=== PATIENT | female | born 1985 | race Caucasian/White ===

== ENCOUNTER 2019-03-24 20:52 | Inpatient (IN) | payer MEDICAID, OTHER ==
--- NOTE | 2019-03-24 21:27 | ED ---
General Adult HPI - General Chief complaint: Psychiatric Symptoms Stated complaint: Mental Health Time Seen by Provider: 03/24/19 21:08 Source: patient, police Mode of arrival: ambulatory Limitations: altered mental status - History of Present Illness Initial comments: Dictation was produced using [employer] dictation software. please excuse any gramma tical, word or spelling errors. Chief Complaint: 33-year-old female brought in by law enforcement for psychotic behavior. History of Present Illness: 33-year-old female brought in by law enforcement. According to law enforcement. Called because patient requested to be evaluated. According to enforcement patient had tangential speech. She is allegedly recently lost her house and is living and in another place with a gentleman named Christopher. Patient is unreliable historian at this time. Denies any suicidal or homicidal ideation. The ROS documented in this emergency department record has been reviewed and confirmed by me. Those systems with pertinent positive or negative responses have been documented in the HPI. All other systems are other negative and/or noncontributory. PHYSICAL EXAM: General Impression: Alert and oriented x3, tangential speech HEENT: Normocephalic atraumatic, extra-ocular movements intact, pupils equal and reactive to light bilaterally, mucous membranes moist. Cardiovascular: Heart regular rate and rhythm, S1&S2 audible, no murmurs, rubs or gallops Chest: Lungs clear to auscultation bilaterally, no rhonchi, no wheeze, no rales Abdomen: Bowel sounds present, abdomen soft, non-tender, non-distended, no organomegaly Musculoskeletal: Pulses present and equal in all extremities, no peripheral edema Motor: no focal deficits noted Neurological: CN II-XII grossly intact, no focal motor or sensory deficits noted Skin: Intact with no visualized rashes Psych: Tangential speech ED course: 33-year-old female presents with clinical presentation consistent with acute psychosis. Patient is brought in by law enforcement. She is petition by law enforcement. Vital signs upon arrival are within acceptable limits. Physical examination is unremarkable. She medically cleared for EPS evaluation. She'll be admitted to inpatient psychiatry. - Related Data Allergies Allergy/AdvReac Type Severity Reaction Status Date / Time Penicillins Allergy Rash/Hives Verified 03/24/19 21:07 Review of Systems ROS Statement: Those systems with pertinent positive or pertinent negative responses have been documented in the HPI. ROS Other: All systems not noted in ROS Statement are negative. Past Medical History Additional Past Medical History / Comment(s): back pain, asthma, carpool, anxiety, PTSD History of Any Multi-Drug Resistant Organisms: None Reported Past Surgical History: Appendectomy Smoking Status: Current every day smoker Past Alcohol Use History: None Reported Past Drug Use History: Marijuana General Exam Limitations: altered mental status Course Vital Signs 03/24/19 20:57 Temperature 98.1 F Pulse Rate 75 Respiratory 18 Rate Blood Pressure 133/82 O2 Sat by Pulse 98 Oximetry Medical Decision Making - Lab Data Lab Results 03/24/19 Range/Units 20:50 Urine Opiates Screen Not Detected (NotDetected) Ur Oxycodone Screen Not Detected (NotDetected) Urine Methadone Screen Not Detected (NotDetected) Ur Propoxyphene Screen Not Detected (NotDetected) Ur Barbiturates Screen Not Detected (NotDetected) U Tricyclic Antidepress Not Detected (NotDetected) Ur Phencyclidine Scrn Not Detected (NotDetected) Ur Amphetamines Screen Not Detected (NotDetected) U Methamphetamines Scrn Not Detected (NotDetected) U Benzodiazepines Scrn Not Detected (NotDetected) Urine Cocaine Screen Not Detected (NotDetected) U Marijuana (THC) Screen Detected H (NotDetected) Disposition Clinical Impression: Psychosis Disposition: ADMITTED IP TO THIS [facility] Condition: Fair Referrals: Nonstaff,Physician [REFERRING] - 1-2 days Decision Time: 23:16
[2019-03-24 21:32] LABS: Amphetamine Screen,Urine Not Detected (NotDetected); Barbiturate Screen,Urine Not Detected (NotDetected); Benzodiazepines Screen,Urine Not Detected (NotDetected); Cocaine Screen,Urine Not Detected (NotDetected); Methadone Screen, Urine Not Detected (NotDetected); Opiate Screen,Urine Not Detected (NotDetected); Oxycodone Screen, Urine Not Detected (NotDetected); Phencyclidine Screen,Urine Not Detected (NotDetected); Tricyclic Antidepressant,Urine Not Detected (NotDetected); Urn Cannabinoid Scrn Detected (NotDetected)
[2019-03-25] MEDS ORDERED: MAGNESIUM HYDROXIDE 2,400 MG/10 ML CUP PO PRN (00:53)
[2019-03-25] MEDS ORDERED: MAG HYDROX/AL HYDROX/SIMETH 30 ML CUP PO PRN (00:53)
[2019-03-25] MEDS ORDERED: ACETAMINOPHEN TAB 325 MG TAB PO PRN (00:53)
[2019-03-25] MEDS ORDERED: LORazepam 2 MG/ML INJ IM PRN (01:16)
[2019-03-25 01:17] LABS: Appearance,Urine Cloudy (Clear); Bacteria,Urine Rare /hpf; Bilirubin,Urine Negative (Negative); Blood,Urine Negative (Negative); Color,Urine Yellow; Glucose,Urine (UA) Negative (Negative); Ketones,Urine Negative (Negative); Leukocyte Esterase,Urine Small (Negative); Mucus,Urine Few /hpf; Nitrite,Urine Negative (Negative); PH, Urine 5.5 (5.0-8.0); Protein,Urine 1+ (Negative); RBC,Urine 4 /hpf (0-5); Specific Gravity,Urine 1.035 (1.001-1.035); Squamous Epithelial Cell,Urine 27 /hpf (0-4); Urobilinogen,Urine <2.0 mg/dL (<2.0); WBC,Urine 20 /hpf (0-5)
[2019-03-25] MEDS: LORazepam 1 MG TAB PO PRN ×2 (02:13→10:05)
[2019-03-25] MEDS: NICOTINE 14MG/24HR PATCH TRANSDERM SCH (09:49)
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
[2019-03-26] MEDS: LORazepam 1 MG TAB PO PRN ×2 (00:21→20:55)
[2019-03-26] MEDS: NICOTINE 14MG/24HR PATCH TRANSDERM SCH (10:30)
--- NOTE | 2019-03-26 13:04 | P.PN ---
Subjective Progress Note Date: 03/26/19 Chief complaint: "I am feeling completely alright" Subjective: The patient has been seen today as follow-up, chart reviewed, case discussed with the treatment team. Patient remained very paranoid and guarded during the interview. She insists that she should be the discharge. The patient was looking around suspiciously and asked if there was a camera here. The patient did not answer any questions and was more argumentative and debating the treatment during the interview. The patient denies any auditory or visual hallucinations but appears to be responding to internal cues. She did not answer questions regarding suicidal thoughts. The patient appears to be suspicious of myself and the staff on the unit. The patient is refusing any medications at this time. Objective - Vital Signs Vital signs: Vital Signs Temp 97.9 F 03/26/19 06:54 Pulse 74 03/26/19 06:54 Resp 16 03/26/19 06:54 BP 106/62 03/26/19 06:54 Pulse Ox 99 03/26/19 06:54 Intake & Output 03/25/19 03/26/19 03/26/19 18:59 06:59 18:59 Weight 69.2 kg - Exam Objective: Vitals has been reviewed. Mental status examination; Appearance: The patient appears stated age, dressed in hospital gown, no specific features. Gait/posture: Normal gait, Normal arm swinging: No abnormal movements. Attitude and behavior: Poorly engaged, uncooperative, eye contact. Motor activity: Normal psychomotor activity Speech: Rapid and low tone and volume. Mood: Anxious, depressed. Affect: Constricted Thought form: Rambling and hyperverbal. Thought content: Non-delusional, denies suicidal thoughts, but reports feeling hopeless, denies homicidal thoughts, denies intentions or plans. Perception: Denies any auditory or visual hallucinations but appears preoccupied and responding to internal cues. Orientation: Unable to assess. Insight: Absent Judgment: Poor Assessment and Plan Assessment: Unspecified psychotic disorder versus bipolar disorder manic with psychosis Plan: PLAN: Continue inpatient level of care due to need for further stabilization on medications Precautions: Continue 15 minutes check for safety. Consults internal medicine team for management of medical problems. Provide the patient individual, group therapy, substance use disorder counseling to give better insight and learn coping skills. Medications: Recommend Zyprexa 5 mg by mouth twice a day. The patient is refusing any treatment. The patient is on petition and clinical certificate. A meeting the court date. Discharge patient to OUTPATIENT services upon a stabilization Expected LOS: 3-5 days
[2019-03-26] MEDS: OLANZapine ODT 5 MG TAB PO SCH ×2 (20:51→22:39)
[2019-03-27] MEDS: NICOTINE 14MG/24HR PATCH TRANSDERM SCH (08:58)
[2019-03-27] MEDS: OLANZapine ODT 5 MG TAB PO SCH ×2 (08:59→20:50)
--- NOTE | 2019-03-27 11:51 | P.PN ---
Subjective Progress Note Date: 03/27/19 The patient was seen in the chart was reviewed. The case was discussed with the staff in the team meeting. The patient remained paranoid and delusional. She refused to come inside the office and talked in the doorway. The patient remained demanding. The patient believes that the only medication she needs is "medicinal marijuana". The patient continues to refuse any psychotropic medications. The patient was to be seen in her room with a camera. The patient remained hyperverbal with pressured speech which is difficult to be redirected. The patient did not answer any further questions. Objective - Vital Signs Vital signs: Vital Signs Temp 96.8 F L 03/27/19 06:25 Pulse 74 03/27/19 06:25 Resp 16 03/27/19 06:25 BP 97/55 03/27/19 06:25 Pulse Ox 99 03/26/19 06:54 - Exam Objective: Vitals has been reviewed. Mental status examination; Appearance: The patient appears stated age, dressed in hospital gown, no specific features. Gait/posture: Normal gait, Normal arm swinging: No abnormal movements. Attitude and behavior: Poorly engaged, uncooperative, eye contact. Motor activity: Normal psychomotor activity Speech: Rapid and low tone and volume. Mood: Anxious, depressed. Affect: Constricted Thought form: Rambling and hyperverbal. Thought content: Non-delusional, denies suicidal thoughts, but reports feeling hopeless, denies homicidal thoughts, denies intentions or plans. Perception: Denies any auditory or visual hallucinations but appears preoccupied and responding to internal cues. Orientation: Unable to assess. Insight: Absent Judgment: Poor Assessment and Plan Assessment: Unspecified psychotic disorder versus bipolar disorder manic with psychosis Plan: PLAN: Continue inpatient level of care due to need for further stabilization on medications Precautions: Continue 15 minutes check for safety. Consults internal medicine team for management of medical problems. Provide the patient individual, group therapy, substance use disorder counseling to give better insight and learn coping skills. Medications: Recommend Zyprexa 5 mg by mouth twice a day. The patient is refusing any treatment. The patient is on petition and clinical certificate. Awaiting the court date. Discharge patient to OUTPATIENT services upon a stabilization Expected LOS: 3-5 days
[2019-03-28] MEDS: LORazepam 1 MG TAB PO PRN ×2 (00:27→08:57)
[2019-03-28] MEDS: NICOTINE 14MG/24HR PATCH TRANSDERM SCH (09:41)
[2019-03-28] MEDS: OLANZapine ODT 5 MG TAB PO SCH ×2 (09:41→20:49)
--- NOTE | 2019-03-28 14:32 | P.PN ---
Subjective Progress Note Date: 03/28/19 The patient seen in the chart was reviewed. The case was discussed with the staff on the unit. The patient remained paranoid and delusional. She reports feeling anxious and believes that there is a conspiracy going on against her. The patient is suspicious of talking to me and refused to come inside my office. The patient reports that she is not suicidal or homicidal. She remained preoccupied and shows lack of insight and impaired judgment worth her treatment and illness. The patient appears to be responding to internal cues although she denies any auditory or visual hallucinations. The patient reports abdominal cramps from menstruation and is requesting Motrin. Objective - Vital Signs Vital signs: Vital Signs Temp 98.0 F 03/28/19 00:35 Pulse 76 03/28/19 00:35 Resp 15 03/28/19 00:35 BP 116/73 03/28/19 00:35 Pulse Ox 99 03/26/19 06:54 - Exam Objective: Vitals has been reviewed. Mental status examination; Appearance: The patient appears stated age, dressed in hospital gown, no specific features. Gait/posture: Normal gait, Normal arm swinging: No abnormal movements. Attitude and behavior: Poorly engaged, uncooperative, eye contact. Motor activity: Normal psychomotor activity Speech: Rapid and low tone and volume. Mood: Anxious, depressed. Affect: Constricted Thought form: Rambling and hyperverbal. Thought content: Non-delusional, denies suicidal thoughts, but reports feeling hopeless, denies homicidal thoughts, denies intentions or plans. Perception: Denies any auditory or visual hallucinations but appears preoccupied and responding to internal cues. Orientation: Unable to assess. Insight: Absent Judgment: Poor Assessment and Plan Assessment: Unspecified psychotic disorder versus bipolar disorder manic with psychosis Plan: PLAN: Continue inpatient level of care due to need for further stabilization on medications Precautions: Continue 15 minutes check for safety. Consults internal medicine team for management of medical problems. Provide the patient individual, group therapy, substance use disorder counseling to give better insight and learn coping skills. Medications: Recommend Zyprexa 5 mg by mouth twice a day. The patient is refusing any treatment. The patient is on petition and clinical certificate. Awaiting the court date. Discharge patient to OUTPATIENT services upon a stabilization Expected LOS: 3-5 days
[2019-03-28] MEDS: ZIPRASIDONE 20 MG VIAL IM PRN (20:49)
[2019-03-29] MEDS: NICOTINE 14MG/24HR PATCH TRANSDERM SCH (10:02)
[2019-03-29] MEDS: OLANZapine ODT 5 MG TAB PO SCH ×3 (10:02→21:12)
--- NOTE | 2019-03-29 12:16 | P.PN ---
Subjective Progress Note Date: 03/29/19 The patient was seen in the chart was reviewed. The patient case was discussed with the staff in the team meeting. The patient remain paranoid, delusional and grandiose. She continues to refuse treatment and shows lack of insight into her illness and treatment. The patient insists to be on marijuana and wants that to be prescribed. The patient's speech is rambling and tangential and difficult to redirect. The patient refused to come in side the office for the session and wanted to talk in the doorway. The patient is argumentative and debating her treatment. The patient denies any suicidal or homicidal ideations at this time. She denies any auditory or visual hallucinations but appears to be responding to internal cues. Objective - Vital Signs Vital signs: Vital Signs Temp 97.6 F 03/29/19 06:00 Pulse 64 03/29/19 06:00 Resp 16 03/29/19 06:00 BP 107/65 03/29/19 06:00 Pulse Ox 99 03/26/19 06:54 - Exam Objective: Vitals has been reviewed. Mental status examination; Appearance: The patient appears stated age, dressed in hospital gown, no specific features. Gait/posture: Normal gait, Normal arm swinging: No abnormal movements. Attitude and behavior: Poorly engaged, uncooperative, eye contact. Motor activity: Normal psychomotor activity Speech: Rapid and low tone and volume. Mood: Anxious, depressed. Affect: Constricted Thought form: Rambling and hyperverbal. Thought content: Non-delusional, denies suicidal thoughts, but reports feeling hopeless, denies homicidal thoughts, denies intentions or plans. Perception: Denies any auditory or visual hallucinations but appears preoccupied and responding to internal cues. Orientation: Unable to assess. Insight: Absent Judgment: Poor Assessment and Plan Assessment: Unspecified psychotic disorder versus bipolar disorder manic with psychosis Plan: PLAN: Continue inpatient level of care due to need for further stabilization on medications Precautions: Continue 15 minutes check for safety. Consults internal medicine team for management of medical problems. Provide the patient individual, group therapy, substance use disorder counseling to give better insight and learn coping skills. Medications: Recommend Zyprexa 5 mg by mouth twice a day. The patient is refusing any treatment. The patient is on petition and clinical certificate. Awaiting the court date. Discharge patient to OUTPATIENT services upon a stabilization Expected LOS: 3-5 days
[2019-03-29] MEDS: LORazepam 1 MG TAB PO PRN (12:25)
[2019-03-30] MEDS: OLANZapine ODT 5 MG TAB PO SCH ×2 (09:30→22:02)
[2019-03-30] MEDS: NICOTINE 14MG/24HR PATCH TRANSDERM SCH (09:30)
[2019-03-30] MEDS: LORazepam 1 MG TAB PO PRN ×2 (10:46→22:04)
--- NOTE | 2019-03-30 12:42 | P.PN ---
Subjective Progress Note Date: 03/30/19 The patient was seen in the hallway area she refused to come into the office for the session. The patient refused to answer any questions. "I only want to see my own doctor who was qualified". The patient continues to refuse any medications at this time. She remain paranoid and delusional. The patient continues to have rapid and hyperverbal speech. She is difficult to redirect. The patient continues to show lack of insight and impaired judgment. Objective - Vital Signs Vital signs: Vital Signs Temp 97.7 F 03/30/19 06:04 Pulse 78 03/30/19 10:45 Resp 20 03/30/19 10:45 BP 108/56 03/30/19 10:45 Pulse Ox 99 03/26/19 06:54 - Exam Objective: Vitals has been reviewed. Mental status examination; Appearance: The patient appears stated age, dressed in hospital gown, no sp ecific features. Gait/posture: Normal gait, Normal arm swinging: No abnormal movements. Attitude and behavior: Poorly engaged, uncooperative, eye contact. Motor activity: Some psychomotor agitation noted Speech: Rapid and and pressured Mood: Anxious, depressed. Affect: Constricted Thought form: Rambling and hyperverbal. Thought content: Non-delusional, denies suicidal thoughts, but reports feeling hopeless, denies homicidal thoughts, denies intentions or plans. Perception: Denies any auditory or visual hallucinations but appears preoccupied and responding to internal cues. Orientation: Unable to assess. Insight: Absent Judgment: Poor Assessment and Plan Assessment: Unspecified psychotic disorder versus bipolar disorder manic with psychosis Plan: PLAN: Continue inpatient level of care due to need for further stabilization on medications Precautions: Continue 15 minutes check for safety. Consults internal medicine team for management of medical problems. Provide the patient individual, group therapy, substance use disorder counseling to give better insight and learn coping skills. Medications: Recommend Zyprexa 5 mg by mouth twice a day. The patient is refusing any treatment. The patient is on petition and clinical certificate. Awaiting the court date. Discharge patient to OUTPATIENT services upon a stabilization Expected LOS: 3-5 days
[2019-03-30] MEDS: IBUPROFEN 200 MG TAB PO PRN (22:04)
[2019-03-31] MEDS: OLANZapine ODT 5 MG TAB PO SCH ×2 (09:17→21:21)
[2019-03-31] MEDS: NICOTINE 14MG/24HR PATCH TRANSDERM SCH (09:17)
[2019-03-31] MEDS: LORazepam 1 MG TAB PO PRN ×3 (10:40→21:23)
--- NOTE | 2019-03-31 10:57 | P.PN ---
Progress Note - Text Interval history: The patient is found at the front desk admin she refuses to speak with me in an interview room even with female nursing present. She begins to ask questions about my credentials in the hallway. Even after those questions are answered she refuses to speak with me. She spontaneously states that she has no suicidal thoughts and does not need any treatment from this facility. It appears she has been refusing medication offered for symptoms of psychosis. It appears that we are awaiting a court hearing regarding her treatment. Mental status exam: The patient is alert she is dressed in her own clothing eye contact is appropriate speech is fluent spontaneous nonpressured. She refuses to participate in interview. She is somewhat guarded she appears paranoid. She makes statements about not belonging in the hospital and she feels I'm not qualified to address her concerns. Insight and judgment appear to be poor. She demonstrated no verbal or physical aggressiveness. She demonstrates no involuntary repetitive movements. She appears to be in no physical distress she ambulates without any ataxia. Plan: The patient is refusing medication and is refusing to meet with me for an interview. Vital signs reviewed. We will await her court hearing to pursue her treatment order for presumed symptoms of psychosis.
[2019-04-01] MEDS: NICOTINE 14MG/24HR PATCH TRANSDERM SCH (09:56)
[2019-04-01] MEDS: OLANZapine ODT 5 MG TAB PO SCH ×2 (09:56→21:17)
--- NOTE | 2019-04-01 10:42 | P.PN ---
Progress Note - Text Interval history: The patient is found at the it help desk associate. She is offered an opportunity speak in an interview room with female staff present. Again she declines. Then moments later she approaches my office door and begins speaking about her medications and some paranoid themes. Again she refuses to me in an interview room and she walks away. Staff reported she slept 4 hours last night. Mental status exam: The patient is alert she is dressed in her own clothing hygiene grooming appear fair. She maintains eye contact during speech she does have spontaneous speech but his ongoing unless interrupted at times. She is uncooperative with the interview overall. She appears to be in no physical distress area and she is ambulating without any difficulty/ataxia. No signs of any repetitive involuntary movements. Insight and judgment remain poor secondary to symptoms of psychosis. Her thoughts are not well organized. Plan: We will continue to offer psychotropic medication. She is refusing the Zyprexa. We will monitor her for safety and encourage participation in the milieu. Vital signs reviewed they're within normal limits. Efforts will be made to provide reality orientation when possible.
[2019-04-01] MEDS: IBUPROFEN 200 MG TAB PO PRN ×2 (13:58→21:15)
[2019-04-01] MEDS: LORazepam 1 MG TAB PO PRN ×3 (14:00→21:18)
[2019-04-02] MEDS: OLANZapine ODT 5 MG TAB PO SCH ×2 (09:00→21:20)
[2019-04-02] MEDS: NICOTINE 14MG/24HR PATCH TRANSDERM SCH (09:00)
[2019-04-02] MEDS: LORazepam 1 MG TAB PO PRN ×2 (09:01→21:21)
--- NOTE | 2019-04-02 15:18 | P.PN ---
Subjective Progress Note Date: 04/02/19 Principal diagnosis: Unspecified psychotic disorder, rule out schizophrenia, rule out schizoaffective disorder, rule out bipolar disorder with psychotic features. I reviewed the medical record, interviewed the patient and discuss her treatment and treatment plan during team meeting. She is a 33-year-old female who presented to unit involuntarily. The petition was completed by a uniform patrol police officer describing suicidal homicidal ideation. She has been guarded and suspicious on the unit. She complains that her rights were violated and has filed complaints with the recipient rights office. She was acutely distressed this afternoon after received a letter from the recipient rights officer informing her that he found no evidence of violation of her rights. Her speech was very difficult to understand. It was disorganized and illogical. She shows no insight or understanding of her mental illness and denies the need for psychiatric hospitalization and refuses to take prescribed psychotropic medications. Objective - Vital Signs Vital signs: Vital Signs Temp 97.7 F 03/30/19 06:04 Pulse 78 03/30/19 10:45 Resp 20 03/30/19 10:45 BP 108/56 03/30/19 10:45 Pulse Ox 99 03/26/19 06:54 Intake & Output 04/01/19 04/02/19 04/02/19 18:59 06:59 18:59 Weight 69.2 kg - Exam She presented as a casually groomed 33-year-old female who was pleasant on approach. She appeared to maintain eye contact but did not attend to the exam. She had a distressed facial expression. Her movements were slow and her gait was steady. Her speech was spontaneous with decreased volume. She had poor articulation. Affect was blunted. She did not express clear suicidal or homicidal ideation. She expressed multiple fragmented delusional beliefs, ideas reference and paranoid ideation. Her thinking was not organized, coherent or goal directed. She denied hallucinations and did not appear to be responding to internal stimuli. Assessment and Plan Assessment: She appears to be severely mentally ill and not improved from admission. She is refusing psychotropic medications. Her probate hearing is scheduled for one 2919. Plan: Continue with inpatient hospitalization. Complete a clinical certificate. Continue Ativan when necessary for anxiety and as ideas when necessary for agitation or aggression. Encourage participation in therapeutic groups and activities. Evaluate clinical status response to treatment daily basis.
[2019-04-02 16:35] VITALS: BMI 23.8
[2019-04-03] MEDS: NICOTINE 14MG/24HR PATCH TRANSDERM SCH (08:33)
[2019-04-03] MEDS: LORazepam 1 MG TAB PO PRN ×2 (08:34→18:55)
[2019-04-03] MEDS: OLANZapine ODT 5 MG TAB PO SCH ×2 (09:26→22:17)
--- NOTE | 2019-04-03 16:36 | P.PN ---
Subjective Progress Note Date: 04/03/19 Principal diagnosis: Unspecified psychotic disorder, rule out schizophrenia, rule out schizoaffective disorder, rule out bipolar disorder with psychotic features. I reviewed the medical record, interviewed the patient and discuss her treatment and treatment plan during team meeting. She refused to get better come to my office for the interview. Her thinking was disorganized and her speech was difficult to follow and understand. She expressed her frustration with hospitalization. She does not believe she has mental illness or require psychiatric treatment. She became increasingly angry as I explained that she has a probate hearing tomorrow and we plan to request continued inpatient treatment as well as the authority to prescribe psychotropic medications. Objective - Vital Signs Vital signs: Vital Signs Temp 97.7 F 03/30/19 06:04 Pulse 78 03/30/19 10:45 Resp 14 04/03/19 06:12 BP 108/56 03/30/19 10:45 Pulse Ox 99 03/26/19 06:54 Intake & Output 04/02/19 04/03/19 04/03/19 18:59 06:59 18:59 Weight 69.2 kg - Exam She presented as a casually groomed 33-year-old female who was pleasant on approach. She appeared to maintain eye contact but did not attend to the exam. She had a distressed facial expression. Her speech was spontaneous with decreased volume. She had poor articulation. Affect was labile She did not express clear suicidal or homicidal ideation. She expressed multiple fragmented delusional beliefs, ideas reference and paranoid ideation. Her thinking was not organized, coherent or goal directed. She denied hallucinations and did not appear to be responding to internal stimuli. Assessment and Plan Assessment: She appears to be severely mentally ill and not improved from admission. She is refusing psychotropic medications. Her probate hearing is scheduled for 04/04/2019 Plan: Continue with inpatient hospitalization. Continue Ativan when necessary for anxiety and as ideas when necessary for agitation or aggression. Encourage participation in therapeutic groups and activities. Evaluate clinical status response to treatment daily basis.
[2019-04-04] MEDS: LORazepam 1 MG TAB PO PRN ×2 (08:47→23:17)
[2019-04-04] MEDS: IBUPROFEN 200 MG TAB PO PRN ×2 (08:48→23:17)
[2019-04-04] MEDS: OLANZapine ODT 5 MG TAB PO SCH ×4 (08:50→22:05)
--- NOTE | 2019-04-04 16:36 | P.PN ---
Subjective Progress Note Date: 04/04/19 Principal diagnosis: Unspecified psychotic disorder, rule out schizophrenia, rule out schizoaffective disorder, rule out bipolar disorder with psychotic features. I reviewed the medical record, interviewed the patient and discuss her treatment and treatment plan during team meeting. She had a probate hearing today and received a 60/90 day combined treatment order. During the hearing she attempted to have my testimony dismissed alleging a conflict of interest. 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 I explained that I had not met Kate before her admission in my family never owned a farm. She was more cooperative and pleasant when she returned from court. She agreed to restart Zyprexa "but at a low dose." She requested to be discharged "soon" alleging that, she keeps her visitation she may loose her parental rights. Objective - Vital Signs Vital signs: Vital Signs Temp 97.7 F 03/30/19 06:04 Pulse 89 04/04/19 08:45 Resp 14 04/03/19 06:12 BP 111/67 04/04/19 08:45 Pulse Ox 99 03/26/19 06:54 - Exam She presented as a casually groomed 33-year-old female who was pleasant on approach. She appeared to maintain eye and attended to the exam.. She had a calm facial expression. Her speech was spontaneous with decreased volume. Her affect was stable. She did not express clear suicidal or homicidal ideation. She did not express delusional thoughts or beliefs during our encounter. Her thinking was not organized, coherent or goal directed. She denied hallucinations and did not appear to be responding to internal stimuli. Assessment and Plan Assessment: She appears to be severely mentally ill and not improved from admission. She agreed to restart psychotropic medication after return from probate Court Plan: Continue with inpatient hospitalization. Begin Zyprexa 5 mg at bedtime and titrated according to clinical response and tolerance. Continue Ativan when necessary for anxiety and as ideas when necessary for agitation or aggression. Encourage participation in therapeutic groups and activities. Evaluate clinical status response to treatment daily basis.
[2019-04-05] MEDS: IBUPROFEN 200 MG TAB PO PRN (08:51)
[2019-04-05] MEDS: ZIPRASIDONE 20 MG VIAL IM PRN (14:53)
[2019-04-05] MEDS: OLANZapine ODT 5 MG TAB PO SCH (20:58)
[2019-04-06] MEDS: IBUPROFEN 200 MG TAB PO PRN (09:07)
[2019-04-06] MEDS: LORazepam 1 MG TAB PO PRN ×2 (09:08→19:10)
[2019-04-06] MEDS ORDERED: OLANZapine 10 MG VIAL IM PRN (09:59)
--- NOTE | 2019-04-06 13:25 | P.PN ---
Subjective Progress Note Date: 04/06/19 Principal diagnosis: Unspecified psychotic disorder, rule out schizophrenia, rule out schizoaffective disorder, rule out bipolar disorder with psychotic features. I reviewed the medical record, interviewed the patient and discuss her treatment and treatment plan during team meeting. She received 20 mg of Geodon and 1 mg of Ativan IM history afternoon for severe agitation. She reports she was lowered, agitated and could not be redirected. This morning she complains of having received IM injections. She talked about her rights being violated and nursing staff "lying" about her. She perseverated about discharge and again alleged that she is discharged she would lose custody of her child. She denied side effects to the initial dose of olanzapine. Objective - Vital Signs Vital signs: Vital Signs Temp 97.7 F 03/30/19 06:04 Pulse 89 04/04/19 08:45 Resp 14 04/06/19 06:24 BP 111/67 04/04/19 08:45 Pulse Ox 99 03/26/19 06:54 - Exam She was presently groomed, maintained eye contact and appeared to attend to the exam. She had a calm facial expression. Her was spontaneous, rapid and digressive. She demonstrated flight of ideas. Her affect was stable and appropriate. She did not express suicidal or homicidal ideation. Her thinking was not organized, coherent or goal directed. She expressed paranoid thoughts but no clear organize paranoid delusion. She denied hallucinations and did not appear to be responding to internal stimuli. Assessment and Plan Assessment: She appears to be severely mentally ill minimally improved from admission . Plan: Continue with inpatient hospitalization. Increase Zyprexa to 10 mg at bedtime and continue to titrate according to clinical response and tolerance. Continue Ativan when necessary for anxiety and as ideas when necessary for agitation or aggression. Encourage participation in therapeutic groups and activities. Evaluate clinical status response to treatment daily basis.
[2019-04-06] MEDS: OLANZapine ODT 10 MG TAB PO SCH (21:05)
[2019-04-07] MEDS: LORazepam 1 MG TAB PO PRN ×2 (08:33→20:13)
[2019-04-07] MEDS: IBUPROFEN 200 MG TAB PO PRN (08:33)
--- NOTE | 2019-04-07 17:41 | P.PN ---
Progress Note - Text Progress Note Date: 04/07/19 Subjective: Patient was seen today as a cross coverage for . The patient was evaluated, chart reviewed, case discussed with the treatment team. Patient reported good sleep last night. Appetite was reported as " fair". Patient has been going to some groups and other unit activities. The patient is compliant with her medications and denies any adverse reactions. Patient reports feeling stable emotionally and he denies feeling depressed, hopeless, or suicidal. She denies any severe mood swings, irritable mood, or agitation. She denies any homicidal ideation. She denies any psychotic symptoms including hallucinations, paranoid ideation, and no delusions could be elicited. She denies any manic symptoms including a euphoric mood, grandiosity, or absence need to sleep due to unusual increase in activities. Objective: Vitals has been reviewed. Mental status examination; Appearance: The patient appears stated age, adequately groomed and dressed, no specific features. Gait/posture: Normal gait, Normal arm swinging: No abnormal movements. Attitude and behavior: engaged, cooperative, eye contact. Motor activity: Normal psychomotor activity Speech: Normal rate, tone. Mood: Anxious Affect: Constricted Thought form: goal-directed, linear, coherent. Thought content: Non-delusional, denies suicidal thoughts, denies homicidal thoughts, denies intentions or plans. Perception: Denies any auditory or visual hallucinations Attention: No impairment. Orientation: Patient patient was fully oriented to time place person and situation. * Insight: Patient has fair insight about her psychiatric disorder. Judgment: Patient has fair judgment about her psychiatric treatment. Assessment: Bipolar disorder, manic episode with psychotic features. Plan: Continue inpatient level of care due to need for further stabilization on medications. Precautions: Continue 15 minutes check for safety. Consider medical consultation if any acute medical issues arise. Provide the patient individual, group therapy, substance use disorder counseling to give better insight and learn coping skills. Medications: Continue Zyprexa 10 mg at bedtime for mood stabilization and psychotic symptoms. Continue Ativan when necessary for anxiety. Discharge patient to OUTPATIENT services upon a stabilization
[2019-04-07] MEDS: OLANZapine ODT 10 MG TAB PO SCH (20:12)
[2019-04-08] MEDS: LORazepam 1 MG TAB PO PRN ×2 (08:58→22:01)
[2019-04-08] MEDS: IBUPROFEN 200 MG TAB PO PRN (08:58)
--- NOTE | 2019-04-08 14:01 | P.PN ---
Progress Note - Text Progress Note Date: 04/08/19 Subjective: Patient was seen today as a cross coverage for . The patient was evaluated, chart reviewed, case discussed with the treatment team. Patient reports continued to feel stable emotionally and he denies feeling depressed, hopeless, or suicidal. She denies any severe anxiety, mood swings, irritability, or agitation. She denies any homicidal ideation, paranoid ideation, and no delusions could be elicited. She denies any hallucinations or manic symptoms including a euphoric mood, lack need to sleep due to increased activities, or uninhibited behavior. She reports good sleep last night and fair appetite today. Patient has been going to some groups and other unit activities. The patient is compliant with her medications and denies any adverse reactions. Objective: Vitals has been reviewed. Mental status examination; Appearance: The patient appears stated age, adequately groomed and dressed, no specific features. Gait/posture: Normal gait, Normal arm swinging: No abnormal movements. Attitude and behavior: engaged, cooperative, eye contact. Motor activity: Normal psychomotor activity Speech: Normal rate, tone. Mood: "Fine" Affect: Constricted Thought form: goal-directed, linear, coherent. Thought content: Non-delusional, denies suicidal thoughts, denies homicidal thoughts, denies intentions or plans. Perception: Denies any auditory or visual hallucinations Attention: No impairment. Orientation: Patient patient was fully oriented to time place person and situation. Insight: Patient has fair insight about her psychiatric disorder. Judgment: Patient has fair judgment about her psychiatric treatment. Assessment: Bipolar disorder, manic episode with psychotic features. Plan: Continue inpatient level of care due to need for further stabilization on medications and discharge planning. Precautions: Continue 15 minutes check for safety. Consider medical consultation if any acute medical issues arise. Provide the patient individual, group therapy, substance use disorder counseling to give better insight and learn coping skills. Medications: Continue Zyprexa 10 mg at bedtime for mood stabilization and psychotic symptoms. Continue Ativan when necessary for anxiety. Discharge patient to OUTPATIENT services upon a stabilization
[2019-04-08] MEDS: OLANZapine ODT 10 MG TAB PO SCH (20:44)
[2019-04-09] MEDS: LORazepam 1 MG TAB PO PRN ×2 (08:58→20:59)
[2019-04-09] MEDS: IBUPROFEN 200 MG TAB PO PRN ×2 (08:58→20:58)
--- NOTE | 2019-04-09 14:40 | P.PN ---
Subjective Progress Note Date: 04/09/19 Principal diagnosis: Bipolar disorder most recent episode manic with psychotic features, rule out schizoaffective disorder. I reviewed the medical record, interviewed the patient and discuss her treatment and treatment plan during team meeting. Her only concern was discharge and she talked about the circumstances that led to this hospitalization and her post discharge plans. Her speech was much more organized an understandable than during prior encounters. She had been living in [place] until a friend invited her to share a trailer in [place]. She is unclear the reason for accepting his invitation because she appeared to be and satisfied with her living situation in [place]. She appeared to develop the psychosis when she was living with this friend. She is planning to return [place] after his discharge from the hospital. She alleged that she owns 1 or 2 homes that she and her friend have been refurbishing. 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 Objective - Vital Signs Vital signs: Vital Signs Temp 97.7 F 03/30/19 06:04 Pulse 83 04/08/19 08:55 Resp 14 04/06/19 06:24 BP 111/65 04/08/19 08:55 Pulse Ox 99 03/26/19 06:54 Intake & Output 04/08/19 04/09/19 04/09/19 18:59 06:59 18:59 Weight 70.9 kg - Exam She was presently groomed, maintained eye contact and appeared to attend to the exam. She had a calm facial expression. Her speech was spontaneous with a rapid rate. She was not aggressive and did not demonstrate pressured speech or flight of ideas. Her affect was stable and appropriate. She did not express suicidal or homicidal ideation. Her thinking was more organized, coherent or goal directed than on prior incontinence. She did not express clear paranoid thoughts. She denied hallucinations and did not appear to be responding to internal stimuli. Assessment and Plan Assessment: She is moderately mentally ill and much improved from admission. Plan: Plan for discharge on 04/10/2019. Continue Zyprexa to 10 mg at bedtime. Continue Ativan when necessary for anxiety and as ideas when necessary for agitation or aggression. Encourage participation in therapeutic groups and activities. Evaluate clinical status response to treatment daily basis.
[2019-04-09] MEDS: OLANZapine ODT 10 MG TAB PO SCH (20:59)
[2019-04-10 07:08] VITALS: BP 93/52; PULSE 100; RESP 17; TEMP 98.6
[2019-04-10] MEDS: IBUPROFEN 200 MG TAB PO PRN (08:02)
[2019-04-10] MEDS: LORazepam 1 MG TAB PO PRN (08:03)
--- NOTE | 2019-04-10 15:36 | P.DS ---
Providers Date of admission: 03/25/19 00:41 Attending physician: Geovanni Davis MD Consults: 03/25/19 01:02 Consult Physician Routine Consulting Provider: Belle Gallardo Consult Reason/Comments: H&P and medical follow up Do you want consulting provider notified?: Yes Primary care physician: Alfredo Iglesias - Discharge Diagnosis(es) (1) Bipolar disorder, most recent episode manic Status: Resolved Priority: High Hospital Course: She is a 33-year-old female admitted to the inpatient unit involuntari ly. A [employer] coxswain completed the petition and described both suicidal and homicidal threats. She provided little information during the initial assessment and would not talk about her past psychiatric history. During the initial interview she was restless and her thinking was disorganized. He completed the clinical certificate spirits submitted documentation probate court for involuntary hospitalization. Provided a comprehensive biopsychosocial assessment. The consulting hospitalists completed initial physical exam and medical history and did not identify acute or chronic medical conditions. Following the probate hearing she received a 60/90 day combine treatment order. Prior to the probate hearing, she agreed to restart olanzapine. The dose was titrated to 10 mg at bedtime. Her level of agitation, intrusiveness, pressured speech and disorganized gradually subsided. Time of discharge she presented as a casually groomed 33-year-old female who was pleasant on approach. She made eye contact and attended to interview. She had no distinguishing features or prominent physical abnormalities. She had a blunted but bright facial expression. She was alert and oriented to person, place and time. She was not restless or agitated. She had a normal gait. Her speech was spontaneous with normal volume and rate. She had no articulation difficulties. Her affect was blunted but stable and appropriate. She denied suicidal ideation or wishes. She denied homicidal ideation. She denied feeling hopeless, helpless or worthless. She did not express ideas reference, paranoid ideation or magical ideation. Her thinking was abstract and associations were coherent and logical. She denied hallucinations and did not appear to be responding to internal stimuli. Patient Condition at Discharge: Fair Plan - Discharge Summary Discharge Rx Participant: No New Discharge Prescriptions: New OLANZapine ODT [ZyPREXA Zydis] 10 mg PO HS 30 Days #30 tab Continue Norgestimate-Ethinyl Estradiol [Sprintec 28 Day Tablet] 1 tab PO DAILY Loratadine [Claritin] 10 mg PO DAILY Ibuprofen [Motrin] 800 mg PO Q8H PRN PRN Reason: Pain Albuterol Sulfate [Ventolin HFA] 2 puff INHALATION RT-QID PRN PRN Reason: Shortness Of Breath Discontinued Pregabalin [Lyrica] 50 mg PO BID Hydrocodone/Acetaminophen [Freeman 10-325] 1 tab PO Q6H PRN PRN Reason: Pain Discharge Medication List Albuterol Sulfate [Ventolin HFA] 2 puff INHALATION RT-QID PRN 03/24/19 [History] Ibuprofen [Motrin] 800 mg PO Q8H PRN 03/24/19 [History] Loratadine [Claritin] 10 mg PO DAILY 03/24/19 [History] Norgestimate-Ethinyl Estradiol [Sprintec 28 Day Tablet] 1 tab PO DAILY 03/24/19 [History] OLANZapine ODT [ZyPREXA Zydis] 10 mg PO HS 30 Days #30 tab 04/10/19 [Rx] Follow up Appointment(s)/Referral(s): intake,intake [Other] - 04/19/19 3:[address] [facility] - 1 Week Patient Instructions/Handouts: Psychotic Disorder (DC) Activity/Diet/Wound Care/Special Instructions: Activity and diet as tolerated. Avoid the use of street drugs and alcohol. Take all medications as prescribed. When you are in need of refills on your medications please contact your medical provider and/or outpatient psychiatrist to have this done. Please go to scheduled outpatient appointment for aftercare treatment. If symptoms return or become worse, call the crisis line at and/or go to the nearest emergency room for evaluation. Discharge Disposition: HOME SELF-CARE
== END 2019-04-10 12:47 | disposition home or self-care (01) | DRG 885 ==
LOC: EC 20:52 → 3MHU 03-25 00:41
PROVIDERS: ADMIT Psychiatry & Neurology Psychiatry; ATTEND Psychiatry & Neurology Psychiatry
DX: F31.2 Bipolar disorder, current episode manic severe with psychotic features (principal); R45.851 Suicidal ideations; F17.210 Nicotine dependence, cigarettes, uncomplicated; F43.10 Post-traumatic stress disorder, unspecified; J45.909 Unspecified asthma, uncomplicated; R45.850 Homicidal ideations; Z90.49 Acquired absence of other specified parts of digestive tract; Z65.3 Problems related to other legal circumstances; Z79.3 Long term (current) use of hormonal contraceptives; Z79.899 Other long term (current) drug therapy; Z88.0 Allergy status to penicillin; M54.30 Sciatica, unspecified side; F41.9 Anxiety disorder, unspecified
CPT/HCPCS: 80306; 81001; 81025; 82075; 99285